=== PATIENT | male | born 1975 | race Two or more races ===

== ENCOUNTER → 2017-06-22 | Outpatient (CLI) | payer BC ==
[~2017-06-22] MED LIST: ASPI-498 OR; AZIT500T4 PO; CARV6.2551 PO; DOXY-216 PO; FURO20TA3 PO; HYDR-4683 GT; LISI-275 PO; SITA100T7 PO; SPIR25TA89 PO
[2017-06-22 12:01] LABS: Basophils # (auto) 0.1 uL; Eosinophils # (auto) 0.2 uL; Eosinophils % (auto) 1.7 % (0.0-7.0); Hematocrit 45.3 % (41.0-53.0); Hemoglobin 14.7 g/dL (13.5-17.5); Lymphocytes # (auto) 1.2 uL; Lymphocytes % (auto) 11.9 % (10.0-50.0); Mean Corpuscular Hemoglobin 26.6 pg (28.0-32.0); Mean Corpuscular Hgb Conc. 32.3 g/dL (32.0-36.0); Mean Corpuscular Volume 82.3 fL (80.0-100.0); Monocytes # (auto) 0.9 uL; Monocytes % (auto) 8.2 % (0.0-12.0); Neutrophils # (auto) 8.1 uL; Neutrophils % (auto) 77.2 % (37.0-80.0); Nucleated Red Blood Cells % 0.1 %; Platelet Count (auto) 273 10^3/uL (140-450); Red Blood Cells 5.51 10^6/uL (4.5-5.90); Red Cell Distribution Width 15.5 % (11.8-14.3); Urine Blood Negative /uL (Negative); Urine Specific Gravity 1.028 (1.001-1.035); White Blood Cell 10.4 10^3/uL (4.4-10.8)
[2017-06-22 12:25] LABS: Free T4 (Free Thyroxine) 1.25 ng/dL (0.89-1.76)
[2017-06-22 12:26] LABS: Prostate Specific Antigen 0.37 ng/mL (0.0-4.0)
[2017-06-22 12:37] LABS: Albumin 3.7 g/dL (3.4-5.0); BUN/Creatinine Ratio 17.2; Bilirubin, Total 0.7 mg/dL (0.2-1.0); Calcium 8.7 mg/dL (8.5-10.1); Total Protein 7.3 g/dL (6.4-8.2)
== END | disposition home or self-care (01) ==
LOC: LAB 09:20
PROVIDERS: ATTEND Internal Medicine Cardiovascular Disease
DX: E78.5 Hyperlipidemia, unspecified (principal); D64.9 Anemia, unspecified; I10 Essential (primary) hypertension; E11.9 Type 2 diabetes mellitus without complications; E03.9 Hypothyroidism, unspecified; E55.9 Vitamin D deficiency, unspecified; R53.81 Other malaise; R97.20 Elevated prostate specific antigen [PSA]; D51.9 Vitamin B12 deficiency anemia, unspecified; N39.0 Urinary tract infection, site not specified
CPT/HCPCS: 36415; 80053; 80061; 81003; 82306; 82607; 83036; 84153; 84403; 84439; 84443; 85025

== ENCOUNTER → 2017-07-08 | Outpatient (CLI) | payer BC | END | disposition home or self-care (01) | LOC: Rad HDHVI 08:05 | PROVIDERS: ATTEND Internal Medicine Cardiovascular Disease | DX: I07.1 Rheumatic tricuspid insufficiency (principal); I42.0 Dilated cardiomyopathy; I11.0 Hypertensive heart disease with heart failure; I50.23 Acute on chronic systolic (congestive) heart failure; E11.9 Type 2 diabetes mellitus without complications; E03.9 Hypothyroidism, unspecified; E78.5 Hyperlipidemia, unspecified | CPT/HCPCS: 93306 ==

== ENCOUNTER → 2018-09-20 | Outpatient (CLI) | payer BC ==
[~2018-09-20] MED LIST changes: -AZIT500T4 PO; +AZIT500T66 PO; -HYDR-4683 GT; +HYDR-4833 GT; +KETOROLAC TROMETH 60MG/2ML VIAL IM ONE; +KETOROLAC TROMETH 60MG/2ML VIAL ONE; +SPIR25TA8 PO; -SPIR25TA89 PO
[2018-09-20 11:07] VITALS: BP 147/99
--- NOTE | 2018-09-20 11:07 | NUR ---
CHF PT PRESENTED TO THE [facility]F [facility]IN[facility] AFTER PASSING OUT AT WORK, STATES HE LOST CONCIUOSNESS. PT DOES HAVE AN AICD. VSS NOW STABLE PT IS NOT HAVING CHEST PAIN BUT DOES FEEL BRUISED IN THE CHEST AREA. EKG, LABS AND INTERROGATION OF PACER ORDERED.
--- NOTE | 2018-09-20 12:49 | NUR ---
EDUCATION PT EDUCATION PROVIDED BY LISSETT CALDERON REGARDING LABS AND LIFESTYLE CHANGES. PT PACEMAKER DID SHOW A SHICK HAPPENING YESTERDAY WITH [facility] WITH A FAST VENTRICULAR RATE/ ECHO ORDERED FOR TOMORROW AND F/U WITH [facility] ON WEDNESDAY AT 1130. PT VERBALIZED UNDERSTANDING
[2018-09-20 13:10] VITALS: BP 155/101
--- NOTE | 2018-09-20 13:13 | NUR ---
Discharge Instructions See e-MAR for any mediations given with this visit. Patient education given on disease process. Patient verbalized understanding. Previous labs reviewed. Patient discharged in stable condition with after care instructions and follow up appointment. ECHO SCHEDULED TOMORROW AND F/U WITH [facility] ON Wednesday09/23/18 MEDICATIONS TORADOL 60MG IM X Q1 RIGHT GLUTE
[2018-09-20 16:02] LABS: Basophils # (auto) 0.1 uL; Basophils % (auto) 0.7 % (0.0-2.0); Eosinophils # (auto) 0.1 uL; Eosinophils % (auto) 0.6 % (0.0-7.0); Hematocrit 43.3 % (41.0-53.0); Hemoglobin 14.6 g/dL (13.5-17.5); Lymphocytes # (auto) 1.2 uL; Lymphocytes % (auto) 8.1 % (10.0-50.0); Mean Corpuscular Hemoglobin 29.6 pg (28.0-32.0); Mean Corpuscular Hgb Conc. 33.7 g/dL (32.0-36.0); Mean Corpuscular Volume 87.7 fL (80.0-100.0); Monocytes % (auto) 6.9 % (0.0-12.0); Neutrophils # (auto) 12.2 uL; Neutrophils % (auto) 83.7 % (37.0-80.0); Platelet Count (auto) 245 10^3/uL (140-450); Red Blood Cells 4.93 10^6/uL (4.5-5.90); Red Cell Distribution Width 14.1 % (11.8-14.3); White Blood Cell 14.6 10^3/uL (4.4-10.8)
[2018-09-20 16:11] LABS: Albumin 3.7 g/dL (3.4-5.0); Calcium 8.3 mg/dL (8.5-10.1); Magnesium 2.1 mg/dL (1.6-2.6); Potassium 3.4 mmol/L (3.5-5.1)
[2018-09-20 16:16] LABS: BUN/Creatinine Ratio 15.8; Bilirubin, Total 1.6 mg/dL (0.2-1.0); Total Protein 7.2 g/dL (6.4-8.2)
== END | disposition home or self-care (01) ==
LOC: CHF HDHVI 11:54
PROVIDERS: ATTEND Internal Medicine Cardiovascular Disease
DX: I50.23 Acute on chronic systolic (congestive) heart failure (principal); K90.9 Intestinal malabsorption, unspecified; E11.9 Type 2 diabetes mellitus without complications; D51.9 Vitamin B12 deficiency anemia, unspecified
CPT/HCPCS: 36415; 80053; 82306; 82607; 83036; 83735; 83880; 85025; 93005; 96372; G0463; J1885

== ENCOUNTER → 2018-09-21 | Outpatient (CLI) | payer BC ==
[~2018-09-21] MED LIST changes: -KETOROLAC TROMETH 60MG/2ML VIAL IM ONE; -KETOROLAC TROMETH 60MG/2ML VIAL ONE
== END | disposition home or self-care (01) ==
LOC: Rad HDHVI 15:57
PROVIDERS: ATTEND Internal Medicine Cardiovascular Disease
DX: I08.8 Other rheumatic multiple valve diseases (principal); I50.23 Acute on chronic systolic (congestive) heart failure
CPT/HCPCS: 93306

== ENCOUNTER → 2018-09-23 | Outpatient (CLI) | payer BC | END | disposition home or self-care (01) | LOC: Rad HDHVI 11:40 | PROVIDERS: ATTEND Internal Medicine Cardiovascular Disease | DX: I11.9 Hypertensive heart disease without heart failure (principal); I70.0 Atherosclerosis of aorta; Z95.810 Presence of automatic (implantable) cardiac defibrillator; Z91.81 History of falling | CPT/HCPCS: 71046 ==

== ENCOUNTER 2021-10-15 02:20 | Inpatient (IN) | payer SELFPAY ==
[~2021-10-15] VITALS: Ht 175.3 cm; Wt 106.0 kg
[~2021-10-15 02:20] MED LIST changes: -DOXY-216 PO; +DOXY-286 PO
[2021-10-15 04:00] LABS: Basophils # (auto) 0.1 10 ^3/uL (0-0.2); Basophils % (auto) 0.8 % (0.0-2.0); Eosinophils # (auto) 0 10 ^3/uL (0-0.8); Eosinophils % (auto) 0.2 % (0.0-7.0); Hematocrit 45.5 % (41.0-53.0); Hemoglobin 14.5 g/dL (13.5-17.5); Lymphocytes # (auto) 0.8 10 ^3/uL (0.4-5.4); Lymphocytes % (auto) 5.9 % (10.0-50.0); Mean Corpuscular Hgb Conc. 31.8 g/dL (32.0-36.0); Mean Corpuscular Volume 87.8 fL (80.0-100.0); Monocytes # (auto) 1.1 10 ^3/uL (0-1.3); Monocytes % (auto) 8.1 % (0.0-12.0); Neutrophils # (auto) 11.8 10 ^3/uL (1.6-8.6); Nucleated Red Blood Cells % 0.1 %; Red Blood Cells 5.17 10^6/uL (4.5-5.90); Red Cell Distribution Width 15.3 % (11.8-14.3); White Blood Cell 13.8 10^3/uL (4.4-10.8)
[2021-10-15 04:25] LABS: Albumin 3.9 g/dL (3.4-5.0); BUN/Creatinine Ratio 11.7; Calcium 8.6 mg/dL (8.5-10.1); Magnesium 2.2 mg/dL (1.6-2.6); Potassium 3.9 mmol/L (3.5-5.1)
[2021-10-15 04:28] LABS: Bilirubin, Total 2.3 mg/dL (0.2-1.0); Total Protein 7.4 g/dL (6.4-8.2)
[2021-10-15 04:47] LABS: Urine Bacteria NONE SEEN /hpf (None Seen); Urine Blood Negative /uL (Negative); Urine Specific Gravity 1.011 (1.001-1.035); Urine WBC 7 /hpf (0 - 3)
[2021-10-15 04:57] LABS: INR 1.27 (0.9-1.15); Partial Thromboplastin Time 27.3 sec (24.6-33.4)
[2021-10-15] MEDS ORDERED: SPIRONOLACTONE 25 MG TAB PO ONE (07:45)
[2021-10-15] MEDS ORDERED: INSULIN LISPRO (HUMAN) 100 UNITS/ML ML SC ONE (07:45)
[2021-10-15] MEDS ORDERED: METOPROLOL TARTRATE 1MG/1ML-5ML VIAL IV ONE (07:45)
[2021-10-15] MEDS ORDERED: FUROSEMIDE 40 MG/4 ML VIAL IV ONE (07:45)
[2021-10-15] MEDS ORDERED: MORPHINE SULFATE INJ 2 MG/ml SYRG IV PRN (14:00)
[2021-10-15] MEDS ORDERED: ACETAMINOPHEN 325 MG TAB PO PRN (14:00)
[2021-10-15] MEDS ORDERED: HYDROcodone-ACET 5/325MG TAB PO PRN (14:00)
[2021-10-15] MEDS ORDERED: DEXTROSE (50%) 50ML SYRG IV PRN (14:00)
[2021-10-15] MEDS ORDERED: ONDANSETRON HCL 4 MG/2 ML VIAL IV PRN (14:00)
[2021-10-15] MEDS: ACCU-CHEK COMFORT CURVE STRIP VI SCH ×2 (17:47→21:59)
[2021-10-15] MEDS: InsuLIN REG 1unit/0.01ml Soln (100units/ml) SC SCH ×2 (17:47→22:15)
[2021-10-15] MEDS: CARVEDILOL 3.125 MG TAB PO SCH (22:04)
[2021-10-15] MEDS: FUROSEMIDE 40 MG/4 ML VIAL IV SCH (22:05)
[2021-10-15] MEDS: SPIRONOLACTONE 25 MG TAB PO SCH (22:05)
[2021-10-15 22:16] VITALS: BP 137/95
[2021-10-15 23:10] VITALS: BP 137/95
[2021-10-15] MEDS ORDERED: DIGO0.12 PO (23:37)
[2021-10-15] MEDS ORDERED: CARV25TA PO (23:37)
[2021-10-15] MEDS ORDERED: AMIO200T33 PO (23:37)
[2021-10-15] MEDS ORDERED: FURO40TA4 PO (23:37)
[2021-10-15] MEDS ORDERED: METF-370 PO (23:37)
[2021-10-15] MEDS ORDERED: ESCI-28 PO (23:38)
[2021-10-15] MEDS ORDERED: BUPR-160 PO (23:38)
[2021-10-15] MEDS ORDERED: RIV20T PO (23:38)
[2021-10-15] MEDS ORDERED: POTA-180 PO (23:38)
[2021-10-15] MEDS ORDERED: DAPA1TAB4 PO (23:38)
[2021-10-15] MEDS ORDERED: LEVO75TA6 PO (23:38)
[2021-10-15] MEDS ORDERED: MEXI150C15 PO (23:38)
[2021-10-16 05:00] VITALS: BP 125/80
[2021-10-16 05:51] LABS: Basophils # (auto) 0.1 10 ^3/uL (0-0.2); Basophils % (auto) 1.2 % (0.0-2.0); Eosinophils # (auto) 0.3 10 ^3/uL (0-0.8); Eosinophils % (auto) 2.5 % (0.0-7.0); Hematocrit 39.3 % (41.0-53.0); Hemoglobin 13.1 g/dL (13.5-17.5); Lymphocytes # (auto) 1.6 10 ^3/uL (0.4-5.4); Lymphocytes % (auto) 15.8 % (10.0-50.0); Mean Corpuscular Hemoglobin 28.9 pg (28.0-32.0); Mean Corpuscular Hgb Conc. 33.3 g/dL (32.0-36.0); Mean Corpuscular Volume 86.8 fL (80.0-100.0); Monocytes # (auto) 0.9 10 ^3/uL (0-1.3); Neutrophils # (auto) 7.3 10 ^3/uL (1.6-8.6); Neutrophils % (auto) 71.5 % (37.0-80.0); Nucleated Red Blood Cells % 0.1 %; Red Blood Cells 4.53 10^6/uL (4.5-5.90); Red Cell Distribution Width 15.4 % (11.8-14.3); White Blood Cell 10.2 10^3/uL (4.4-10.8)
[2021-10-16 06:14] LABS: Potassium 3.5 mmol/L (3.5-5.1)
[2021-10-16 06:18] LABS: Albumin 3.2 g/dL (3.4-5.0); BUN/Creatinine Ratio 17.6; Calcium 8.1 mg/dL (8.5-10.1)
[2021-10-16 06:21] LABS: Bilirubin, Total 2.2 mg/dL (0.2-1.0)
[2021-10-16] MEDS: ACCU-CHEK COMFORT CURVE STRIP VI SCH ×4 (06:26→23:28)
[2021-10-16] MEDS: InsuLIN REG 1unit/0.01ml Soln (100units/ml) SC SCH ×4 (06:27→23:34)
[2021-10-16 08:00] VITALS: BP 146/98
[2021-10-16 08:20] VITALS: BP 146/98
[2021-10-16] MEDS: LISINOPRIL 5 MG TAB PO SCH (10:00)
[2021-10-16] MEDS: SPIRONOLACTONE 25 MG TAB PO SCH ×2 (10:53→23:33)
[2021-10-16] MEDS: FUROSEMIDE 40 MG/4 ML VIAL IV SCH ×2 (10:53→23:33)
[2021-10-16] MEDS: CARVEDILOL 3.125 MG TAB PO SCH ×2 (10:54→23:33)
[2021-10-16] MEDS: ENOXAPARIN SOD 40 MG/0.4 ML SYRINGE SC SCH (10:55)
[2021-10-16 12:00] VITALS: BP 134/92
[2021-10-16 16:00] VITALS: BP 120/84
[2021-10-16] MEDS: AMIODARONE HCL 200 MG TAB PO SCH (20:03)
[2021-10-16 22:00] VITALS: BP 105/71
[2021-10-17 05:00] VITALS: BP 136/96
[2021-10-17] MEDS: ACCU-CHEK COMFORT CURVE STRIP VI SCH ×3 (06:41→17:00)
[2021-10-17] MEDS: InsuLIN REG 1unit/0.01ml Soln (100units/ml) SC SCH ×3 (06:42→17:00)
[2021-10-17 09:00] VITALS: BP 146/92
[2021-10-17] MEDS ORDERED: LISI-275 PO (09:31)
[2021-10-17] MEDS: AMIODARONE HCL 200 MG TAB PO SCH (09:46)
[2021-10-17] MEDS: ENOXAPARIN SOD 40 MG/0.4 ML SYRINGE SC SCH (09:47)
[2021-10-17] MEDS: CARVEDILOL 3.125 MG TAB PO SCH (09:47)
[2021-10-17] MEDS: LISINOPRIL 5 MG TAB PO SCH (09:47)
[2021-10-17] MEDS: FUROSEMIDE 40 MG/4 ML VIAL IV SCH (09:48)
[2021-10-17] MEDS: SPIRONOLACTONE 25 MG TAB PO SCH (09:48)
[2021-10-17 13:00] VITALS: BP 121/71
[2021-10-17 17:02] VITALS: BP 118/83
== END 2021-10-17 17:35 | disposition home or self-care (01) | DRG 291 ==
LOC: EDBD 02:20 → ER 02:24 → TELE 13:52 → TELE-CENTR 21:46
PROVIDERS: ADMIT Internal Medicine; ATTEND Internal Medicine
DX: I13.0 Hypertensive heart and chronic kidney disease with heart failure and stage 1 through stage 4 chronic kidney disease, or unspecified chronic kidney disease (principal); I50.23 Acute on chronic systolic (congestive) heart failure; N17.9 Acute kidney failure, unspecified; D72.829 Elevated white blood cell count, unspecified; E11.22 Type 2 diabetes mellitus with diabetic chronic kidney disease; E11.65 Type 2 diabetes mellitus with hyperglycemia; E78.5 Hyperlipidemia, unspecified; E87.6 Hypokalemia; I48.91 Unspecified atrial fibrillation; Z20.822 Contact with and (suspected) exposure to COVID-19; I25.10 Atherosclerotic heart disease of native coronary artery without angina pectoris; R09.89 Other specified symptoms and signs involving the circulatory and respiratory systems; N18.2 Chronic kidney disease, stage 2 (mild); Z79.899 Other long term (current) drug therapy; Z80.1 Family history of malignant neoplasm of trachea, bronchus and lung; Z80.3 Family history of malignant neoplasm of breast; Z80.42 Family history of malignant neoplasm of prostate; Z80.8 Family history of malignant neoplasm of other organs or systems; Z81.8 Family history of other mental and behavioral disorders; Z82.0 Family history of epilepsy and other diseases of the nervous system; Z82.3 Family history of stroke; Z82.49 Family history of ischemic heart disease and other diseases of the circulatory system; Z82.5 Family history of asthma and other chronic lower respiratory diseases; Z82.62 Family history of osteoporosis; Z83.3 Family history of diabetes mellitus; Z95.810 Presence of automatic (implantable) cardiac defibrillator
CPT/HCPCS: 36415; 71045; 80053; 80162; 81001; 82962; 83036; 83735; 83880; 84484; 85025; 85610; 85730; 93005; 96374; 96375; G0378; J1815